=== PATIENT | female | born 1985 | race Hispanic/Latino ===

== ENCOUNTER 2018-04-26 00:42 | Emergency (ER) | payer OTHER ==
[2018-04-26 00:58] VITALS: BP 137/87; PULSE 76; RESP 16; TEMP 97.9; O2SAT 98
[2018-04-26] MEDS ORDERED: Amoxicillin-Clav 875-125 mg Tab PO STA (01:12)
[2018-04-26] MEDS ORDERED: Oxycodone/Acetaminophen 5/325 mg Tab PO ONE (01:16)
--- NOTE | 2018-04-26 01:51 | ED PDOC ---
HPI: General Adult Time Seen by Provider: 04/26/18 00:50 Chief Complaint (Nursing): ENT Problem Chief Complaint (Provider): Left ear pain History Per: Patient History/Exam Limitations: no limitations Onset/Duration Of Symptoms: Hrs (x2) Current Symptoms Are (Timing): Still Present Additional Complaint(s): 33 year old female with a pmhx of frequent ear infections presents to the emergency department complaining of left ear pain onset two hours ago. Patient states she has had an upper respiratory infection for a week, and took Aleve prior to arrival. Denies fever. PMD: none provided Past Medical History Reviewed: Historical Data, Nursing Documentation, Vital Signs Vital Signs: Last Vital Signs Temp 97.9 F 04/26/18 00:55 Pulse 76 04/26/18 01:49 Resp 16 04/26/18 00:55 BP 137/87 04/26/18 01:49 Pulse Ox 98 04/29/18 20:50 - Medical History PMH: Anxiety, Bipolar Disorder, Depression, Rheumatoid Arthritis, Seizures Other PMH: frequent ear infections - Surgical History Other surgeries: ear tubes - Family History Family History: States: Unknown Family Hx - Social History Current smoker - smoking cessation education provided: No Alcohol: None Drugs: Denies - Home Medications Home Medications: Ambulatory Orders Medication Instructions Recorded Amoxicillin/Clavulanate [Augmentin 1 tab PO BID #20 tab 04/26/18 875 MG-125 MG] - Allergies Allergies/Adverse Reactions: Allergies Allergy/AdvReac Type Severity Reaction Status Date / Time No Known Allergies Allergy Verified 04/26/18 00:58 Review of Systems ROS Statement: Except As Marked, All Systems Reviewed And Found Negative Constitutional: Negative for: Fever ENT: Positive for: Ear Pain (left), Other (upper respiratory infection for a week) Physical Exam - Reviewed Nursing Documentation Reviewed: Yes Vital Signs Reviewed: Yes - Physical Exam Appears: Positive for: No Acute Distress Head Exam: Positive for: ATRAUMATIC, NORMOCEPHALIC Skin: Positive for: Normal Color, Warm, Dry Eye Exam: Positive for: Normal appearance ENT: Positive for: TM Is/Are (left: acute otitis media with erythematous TM, fluid behind TM; right ear: within normal limits) Neck: Positive for: Normal, Painless ROM, Supple Cardiovascular/Chest: Positive for: Regular Rate, Rhythm. Negative for: Murmur Respiratory: Positive for: Normal Breath Sounds. Negative for: Accessory Muscle Use, Wheezing, Respiratory Distress Gastrointestinal/Abdominal: Positive for: Normal Exam, Soft. Negative for: Tenderness Back: Positive for: Normal Inspection Extremity: Positive for: Normal ROM Neurologic/Psych: Positive for: Alert, Oriented (x3). Negative for: Motor/ Sensory Deficits - ECG O2 Sat by Pulse Oximetry: 98 (RA) Pulse Ox Interpretation: Normal Medical Decision Making Medical Decision Making: Initial Impression: acute otitis media in left ear Time: 1:12 Initial Plan: --Augmentin 1 tab PO --Percocet 1 tab PO Scribe Attestation: Documented by Laura Carmichael, acting as a scribe for Jose Lawler MD. Provider Scribe Attestation: All medical entries made by the Scribe were at my direction and personally dictated by me. I have reviewed the chart and agree that the record accurately reflects my personal performance of the history, physical exam, medical decision making, and the department course for this patient. I have also personally directed, reviewed, and agree with the discharge instructions and disposition. Disposition - Clinical Impression Clinical Impression: Otitis media - Patient ED Disposition Is Patient to be Admitted: No Counseled Patient/Family Regarding: Studies Performed, Diagnosis, Need For Followup - Disposition Disposition: Routine/Home Disposition Time: 01:45 Condition: IMPROVED Additional Instructions: follow up with your doctor in 1-2 days return to the ED with any worsening or concerning symptoms Prescriptions: Amoxicillin/Clavulanate [Augmentin 875 MG-125 MG] 1 tab PO BID #20 tab Instructions: Ear Infections (Otitis Media) (DC) Forms: [employer] (Kyr[place]z)
== END 2018-04-26 01:49 | disposition home or self-care (01) ==
LOC: H.ER 00:42
DX: H66.92 Otitis media, unspecified, left ear (principal); F31.9 Bipolar disorder, unspecified; F41.9 Anxiety disorder, unspecified; M06.9 Rheumatoid arthritis, unspecified